=== PATIENT | male | born 1955 | race Caucasian/White ===

== ENCOUNTER 2021-07-29 08:54 | Emergency (ER) | payer OTHER, MEDICARE ==
[~2021-07-29] VITALS: Ht 172.7 cm; Wt 84.5 kg
[2021-07-29 09:29] VITALS: BP 130/90
== END 2021-07-29 09:45 | disposition home or self-care (01) ==
LOC: ER 08:56
DX: U07.1 COVID-19 (principal); Z60.2 Problems related to living alone; Z59.00 Homelessness unspecified
CPT/HCPCS: 99281

== ENCOUNTER 2021-08-08 20:46 | Emergency (ER) | payer OTHER, MEDICARE ==
[~2021-08-08] VITALS: Ht 172.7 cm; Wt 81.0 kg
[2021-08-08] MEDS ORDERED: ondansetron/PF 4mg/2ml inj IV ONE (22:50)
[2021-08-08] MEDS ORDERED: normal saline 1000ML IV soln IVB ONE (22:50)
[2021-08-08] MEDS ORDERED: magnesium 2GM in 50ml NS 50 ML IV ONE (22:50)
[2021-08-08] MEDS ORDERED: thiamine inj. 100 MG in normal saline 100ml IV soln 99 ML IV ONE (22:50)
[2021-08-08] MEDS ORDERED: phenobarbital inj 260 MG in normal saline 100ml IV soln 100 ML IV ONE (22:50)
[2021-08-08] MEDS ORDERED: thiamine 100mg/ml 2ml inj. IV ONE (22:55)
[2021-08-08 23:20] LABS: LYMPHOCYTES # (AUTO) 1.4 X10'3 (1.1-4.8)
[2021-08-08 23:21] LABS: BASOPHILS % (AUTO) 0.7 % (0-1); EOSINOPHILS % (AUTO) 0.5 % (0-6); HEMATOCRIT 43.4 % (42.0-52.0); HEMOGLOBIN 15.3 g/dl (14.0-17.9); LYMPHOCYTES % (AUTO) 21.5 % (21-51); MEAN CORPUSCULAR HEMOGLOBIN 32.5 PG (27.0-31.0); MEAN CORPUSCULAR HGB CONC 35.3 g/dL (33.0-36.5); MONOCYTES # (AUTO) 1.1 X10'3 (0-0.9); MONOCYTES % (AUTO) 16.8 % (2-12); NEUTROPHILS % (AUTO) 60.5 % (42-75); PLATELET COUNT 304 X10'3 (140-440); RED BLOOD COUNT 4.72 X10'6 (4.70-6.10); RED CELL DISTRIBUTION WIDTH 14.5 % (11.5-14.5); WHITE BLOOD COUNT 6.6 X10'3 (4.5-11.0)
[2021-08-08 23:32] LABS: ALANINE AMINOTRANSFERASE 110 U/L (12-78); ALBUMIN 3.4 G/DL (3.4-5.0); ALBUMIN/GLOBULIN RATIO 0.8 (1.1-1.5); ALKALINE PHOSPHATASE 79 IU/L (46-116); ANION GAP 14 (8-16); ASPARTATE AMINO TRANSFERASE 103 U/L (10-37); BILIRUBIN,TOTAL 1.5 MG/DL (0.1-1.0); BLOOD UREA NITROGEN 8 MG/DL (7-18); BUN/CREATININE RATIO 8.2 (5.4-32.0); CALCIUM 8.7 MG/DL (8.5-10.1); CHLORIDE 100 MMOL/L (99-107); CREATININE 0.97 MG/DL (0.60-1.10); ETHANOL < 0.010 GM/DL (0.0-0.010); GLUCOSE 123 MG/DL (70-104); MAGNESIUM 1.7 MG/DL (1.5-2.4); POTASSIUM 3.3 MMOL/L (3.5-5.1); SODIUM 139 MMOL/L (135-145); TOTAL CARBON DIOXIDE 24.7 MMOL/L (24-32); TOTAL PROTEIN 7.8 G/DL (6.4-8.2); eGFR 77 ML/MIN
[2021-08-08] MEDS ORDERED: phenobarbital inj 130 MG in normal saline 100ml IV soln 100 ML IV ONE (23:50)
[2021-08-09 00:43] LABS: TOTAL CELLS COUNTED 100
[2021-08-09 00:44] LABS: PLATELET ESTIMATE NORMAL
[2021-08-09 04:28] VITALS: BP 142/86
== END 2021-08-09 04:35 | disposition home or self-care (01) ==
LOC: ER 20:48
DX: F10.239 Alcohol dependence with withdrawal, unspecified (principal); R11.10 Vomiting, unspecified; Z72.89 Other problems related to lifestyle; Z59.00 Homelessness unspecified; Z60.2 Problems related to living alone; Y90.0 Blood alcohol level of less than 20 mg/100 ml
CPT/HCPCS: 36415; 80053; 80320; 83735; 85007; 85025; 93005; 96365; 96366; 96375; 96376; 99284; J2405; J2560; J3411; J3475; J7030; 96367

== ENCOUNTER 2022-02-21 11:32 | Emergency (ER) | payer OTHER, MEDICARE ==
[~2022-02-21] VITALS: Ht 170.2 cm; Wt 86.4 kg
[2022-02-21 12:23] VITALS: BP 134/96
[2022-02-21 13:48] LABS: BASOPHILS # (AUTO) 0.1 X10'3 (0-0.2); LYMPHOCYTES # (AUTO) 1.6 X10'3 (1.1-4.8); MEAN CORPUSCULAR HGB CONC 34.6 g/dL (33.0-36.5); MONOCYTES # (AUTO) 0.8 X10'3 (0-0.9); NEUTROPHILS # (AUTO) 1.8 X10'3 (1.8-7.7); RED BLOOD COUNT 5.11 X10'6 (4.70-6.10)
[2022-02-21 13:50] LABS: BASOPHILS % (AUTO) 1.3 % (0-1); EOSINOPHILS % (AUTO) 1.1 % (0-6); HEMATOCRIT 47.1 % (42.0-52.0); HEMOGLOBIN 16.3 g/dl (14.0-17.9); LYMPHOCYTES % (AUTO) 36.7 % (21-51); MEAN CORPUSCULAR HEMOGLOBIN 31.9 PG (27.0-31.0); MEAN CORPUSCULAR VOLUME 92.2 FL (78-98); MEAN PLATELET VOLUME 6.7 FL (7.4-10.4); MONOCYTES % (AUTO) 18.7 % (2-12); NEUTROPHILS % (AUTO) 42.2 % (42-75); PLATELET COUNT 243 X10'3 (140-440); RED CELL DISTRIBUTION WIDTH 13.5 % (11.5-14.5); WHITE BLOOD COUNT 4.3 X10'3 (4.5-11.0)
[2022-02-21 14:02] LABS: ALANINE AMINOTRANSFERASE 49 U/L (12-78); ALBUMIN 3.7 G/DL (3.4-5.0); ALBUMIN/GLOBULIN RATIO 0.8 (1.1-1.5); ALKALINE PHOSPHATASE 78 IU/L (46-116); ANION GAP 17 (8-16); ASPARTATE AMINO TRANSFERASE 43 U/L (10-37); BILIRUBIN,TOTAL 0.6 MG/DL (0.1-1.0); BLOOD UREA NITROGEN 8 MG/DL (7-18); BUN/CREATININE RATIO 8.9 (5.4-32.0); CALCIUM 8.5 MG/DL (8.5-10.1); CHLORIDE 102 MMOL/L (99-107); GLUCOSE 125 MG/DL (70-104); POTASSIUM 3.7 MMOL/L (3.5-5.1); SODIUM 140 MMOL/L (135-145); TOTAL CARBON DIOXIDE 21.1 MMOL/L (24-32); TOTAL PROTEIN 8.3 G/DL (6.4-8.2); eGFR 84 ML/MIN
[2022-02-21 14:03] LABS: MAGNESIUM 2.3 MG/DL (1.5-2.4)
[2022-02-21 14:04] LABS: ETHANOL 0.418 GM/DL (0.0-0.010)
[2022-02-21] MEDS ORDERED: normal saline 1000ML IV soln IVB ONE (14:10)
== END 2022-02-21 14:33 | disposition home or self-care (01) ==
LOC: ER 11:33
DX: F10.920 Alcohol use, unspecified with intoxication, uncomplicated (principal); Z59.00 Homelessness unspecified; Y90.9 Presence of alcohol in blood, level not specified
CPT/HCPCS: 36415; 80053; 80320; 83735; 85025; 99283

== ENCOUNTER 2023-09-29 20:40 | Inpatient (IN) | payer OTHER, MEDICARE ==
[~2023-09-29] VITALS: Ht 172.7 cm; Wt 85.4 kg
[2023-09-29] MEDS ORDERED: LORazepam 2 mg/ml vial IM ONE (20:50)
[2023-09-29] MEDS ORDERED: normal saline 1000ML IV soln IVB ONE (21:35)
[2023-09-29] MEDS ORDERED: Potassium Cl inj 20 MEQ, magnesium sulf injection 2 GM, folic acid inj. 1 MG, thiamine ... IV ONE ×6 (21:35)
[2023-09-29 21:46] LABS: HEMATOCRIT 48.2 % (42.0-52.0); HEMOGLOBIN 16.6 g/dl (14.0-17.9); MEAN CORPUSCULAR HEMOGLOBIN 32.5 PG (27.0-31.0); MEAN CORPUSCULAR HGB CONC 34.5 g/dL (33.0-36.5); MEAN CORPUSCULAR VOLUME 94.3 FL (78-98); MEAN PLATELET VOLUME 7.4 FL (7.4-10.4); PLATELET COUNT 271 X10'3 (140-440); RED BLOOD COUNT 5.11 X10'6 (4.70-6.10); RED CELL DISTRIBUTION WIDTH 15.1 % (11.5-14.5); WHITE BLOOD COUNT 5.8 X10'3 (4.5-11.0)
[2023-09-29 21:58] LABS: ALANINE AMINOTRANSFERASE 142 U/L (12-78); ALBUMIN 3.6 G/DL (3.4-5.0); ALBUMIN/GLOBULIN RATIO 0.8 (1.1-1.5); ALKALINE PHOSPHATASE 66 IU/L (46-116); ANION GAP 13 (8-16); ASPARTATE AMINO TRANSFERASE 111 U/L (10-37); BLOOD UREA NITROGEN 6 MG/DL (7-18); BUN/CREATININE RATIO 7.9 (10.0-20.0); CALCIUM 9.1 MG/DL (8.5-10.1); CHLORIDE 100 MMOL/L (99-107); CREATININE 0.76 MG/DL (0.60-1.10); ETHANOL 282 MG/DL (<10); GLUCOSE 122 MG/DL (70-104); POTASSIUM 3.4 MMOL/L (3.5-5.1); SODIUM 136 MMOL/L (135-145); TOTAL CARBON DIOXIDE 23.3 MMOL/L (24-32); TOTAL PROTEIN 8.2 G/DL (6.4-8.2); eCRCL 90 ML/MIN; eGFR > 90 ML/MIN
[2023-09-29 22:10] LABS: TOTAL CELLS COUNTED 100
[2023-09-29 22:11] LABS: PLATELET ESTIMATE NORMAL
[2023-09-29 22:14] LABS: ELLIPTOCYTES 1+
[2023-09-29] MEDS ORDERED: folic acid 1mg/0.2ml inj IV ONE (22:20)
[2023-09-29] MEDS ORDERED: magnesium 2GM in 50ml NS 50 ML IV ONE (22:20)
[2023-09-29] MEDS ORDERED: thiamine 100mg/ml 2ml inj. IV ONE (22:20)
[2023-09-29 22:22] LABS: THYROID STIMULATING HORMONE 5.25 ulU/ml (0.34-4.50)
[2023-09-29] MEDS: potassium CL 10mEq/100ml bag 100 ML IV SCH (23:31)
[2023-09-30] MEDS: potassium CL 10mEq/100ml bag 100 ML IV SCH (00:35)
[2023-09-30 03:26] LABS: URINE AMPHETAMINE SCREEN NEGATIVE (Neg); URINE BARBITUATE SCREEN NEGATIVE (Neg); URINE BENZODIAZEPINES SCREEN NEGATIVE (Neg); URINE CANNABINOID SCREEN NEGATIVE (Neg); URINE COCAINE SCREEN NEGATIVE (Neg); URINE METHADONE SCREEN NEGATIVE (Neg); URINE OPIATE SCREEN NEGATIVE (Neg); URINE PHENCYCLIDINE SCREEN NEGATIVE (Neg)
[2023-09-30 04:07] LABS: BILIRUBIN,URINE NEGATIVE (Neg); CLARITY,URINE CLEAR (Clear); COLOR,URINE YELLOW (Yellow); GLUCOSE, URINE NEGATIVE (Neg); KETONES,URINE TRACE mg/dl (Neg); LEUKOCYTE ESTERASE ,URINE NEGATIVE (Neg); NITRITES, URINE NEGATIVE (Neg); OCCULT BLOOD,URINE NEGATIVE (Neg); PROTEIN,URINE NEGATIVE (Neg); UROBILINOGEN,URINE 0.2 E.U/dL (0.2-1.0)
[2023-09-30 04:12] LABS: UA COLLECTION TYPE URINAL
[2023-09-30] MEDS ORDERED: phenobarbital inj 130 MG in normal saline 100ml IV soln 99 ML IV SCH (11:50)
[2023-09-30] MEDS ORDERED: phenobarbital inj 130 MG in normal saline 100ml IV soln 99 ML IV ONE (12:50)
[2023-09-30] MEDS ORDERED: magnesium 4gm in 100ml NS 100 ML IV PRN (13:10)
[2023-09-30] MEDS ORDERED: ondansetron/PF 4mg/2ml inj IV PRN (13:10)
[2023-09-30] MEDS ORDERED: magnesium 2GM in 50ml NS 50 ML IV PRN (13:10)
[2023-09-30] MEDS ORDERED: potassium Cl 40MEQ/1/2NS 520ml 520 ML IV PRN (13:10)
[2023-09-30] MEDS ORDERED: potassium Cl 20 mEq SR tablet PO PRN ×2 (13:10)
[2023-09-30] MEDS ORDERED: acetaminophen 325mg tablet PO PRN (13:10)
[2023-09-30] MEDS ORDERED: magnesium Cl slow-release 64mg tablet PO PRN (13:10)
[2023-09-30 13:51] LABS: CREATINE KINASE 366 U/L (39-308); LIPASE 50 U/L (16-77)
[2023-09-30] MEDS ORDERED: haloperidol 5mg tablet PO PRN (14:20)
[2023-09-30] MEDS ORDERED: LORazepam 1 MG tablet PO PRN (14:20)
[2023-09-30] MEDS ORDERED: haloperidol lactate 5mg/ml inj IM PRN (14:20)
[2023-09-30] MEDS: normal saline 1000ml 1,000 ML IV SCH (14:22)
[2023-09-30 16:25] VITALS: BP 158/102; PULSE 92; RESP 18; TEMP 98.2; O2SAT 97
[2023-09-30] MEDS: LORazepam 2 mg/ml vial IV PRN (16:39)
[2023-09-30 22:00] VITALS: BP 142/89; PULSE 95; RESP 18; TEMP 97.2; O2SAT 97
[2023-10-01 02:00] VITALS: BP 148/98; PULSE 97; RESP 17; TEMP 97.6; O2SAT 96
[2023-10-01 06:16] LABS: BASOPHILS # (AUTO) 0.1 X10'3 (0-0.2); BASOPHILS % (AUTO) 1.2 % (0-1); EOSINOPHILS # (AUTO) 0.1 X10'3 (0-0.9); EOSINOPHILS % (AUTO) 2.6 % (0-6); HEMATOCRIT 42.3 % (42.0-52.0); HEMOGLOBIN 14.5 g/dl (14.0-17.9); LYMPHOCYTES # (AUTO) 0.8 X10'3 (1.1-4.8); LYMPHOCYTES % (AUTO) 14.6 % (21-51); MEAN CORPUSCULAR HEMOGLOBIN 32.5 PG (27.0-31.0); MEAN CORPUSCULAR HGB CONC 34.4 g/dL (33.0-36.5); MEAN CORPUSCULAR VOLUME 94.5 FL (78-98); MEAN PLATELET VOLUME 7.5 FL (7.4-10.4); MONOCYTES # (AUTO) 0.8 X10'3 (0-0.9); MONOCYTES % (AUTO) 16.2 % (2-12); NEUTROPHILS # (AUTO) 3.4 X10'3 (1.8-7.7); NEUTROPHILS % (AUTO) 65.4 % (42-75); PLATELET COUNT 196 X10'3 (140-440); RED BLOOD COUNT 4.47 X10'6 (4.70-6.10); RED CELL DISTRIBUTION WIDTH 14.5 % (11.5-14.5); WHITE BLOOD COUNT 5.2 X10'3 (4.5-11.0)
[2023-10-01 06:25] LABS: ALANINE AMINOTRANSFERASE 103 U/L (12-78); ALBUMIN 2.9 G/DL (3.4-5.0); ALBUMIN/GLOBULIN RATIO 0.7 (1.1-1.5); ALKALINE PHOSPHATASE 55 IU/L (46-116); ANION GAP 9 (8-16); ASPARTATE AMINO TRANSFERASE 79 U/L (10-37); BLOOD UREA NITROGEN 6 MG/DL (7-18); BUN/CREATININE RATIO 9.4 (10.0-20.0); CALCIUM 8.4 MG/DL (8.5-10.1); CHLORIDE 99 MMOL/L (99-107); CREATININE 0.64 MG/DL (0.60-1.10); GLUCOSE 109 MG/DL (70-104); PHOSPHORUS 3.6 MG/DL (2.3-4.5); POTASSIUM 3.5 MMOL/L (3.5-5.1); SODIUM 132 MMOL/L (135-145); TOTAL CARBON DIOXIDE 24.3 MMOL/L (24-32); TOTAL PROTEIN 6.8 G/DL (6.4-8.2); eCRCL 107 ML/MIN; eGFR > 90 ML/MIN
[2023-10-01 07:00] VITALS: BP 149/99; PULSE 97; RESP 18; TEMP 98.9; O2SAT 97
[2023-10-01 07:01] LABS: PLATELET ESTIMATE NORMAL; TOTAL CELLS COUNTED 100
[2023-10-01 10:00] VITALS: BP 102/54; PULSE 99; RESP 18; TEMP 98.7; O2SAT 96
[2023-10-01] MEDS: enoxaparin 40mg/0.4ml syringe SUBCUT SCH (10:57)
[2023-10-01] MEDS: normal saline 1000ml 1,000 ML IV SCH (11:02)
[2023-10-01] MEDS ORDERED: THIA50TA10 PO (15:54)
[2023-10-01] MEDS ORDERED: FOLI1TAB27 PO (15:54)
[2023-10-01] MEDS ORDERED: ACET325T55 PO (15:54)
[2023-10-01] MEDS ORDERED: AMLO2.5T5 PO (15:54)
[2023-10-01] MEDS ORDERED: DICL20GE TOP (15:54)
[2023-10-01] MEDS ORDERED: METH-797 PO (15:54)
[2023-10-01] MEDS ORDERED: ATOR20TA66 PO (15:54)
[2023-10-01] MEDS ORDERED: IBUP-1984 PO (15:54)
[2023-10-01] MEDS ORDERED: CHOL100024 PO (15:54)
[2023-10-01] MEDS ORDERED: GABA600T13 PO (15:54)
[2023-10-01] MEDS ORDERED: MULT-1085 PO (15:54)
[2023-10-01] MEDS ORDERED: PRAZ2CAP2 PO (15:54)
[2023-10-01 18:00] VITALS: BP 139/84; PULSE 95; RESP 18; TEMP 99.7; O2SAT 99
[2023-10-01 22:00] VITALS: BP 147/75; PULSE 91; RESP 16; TEMP 98.2; O2SAT 95
[2023-10-01] MEDS: temazepam 15mg capsule PO PRN (23:18)
[2023-10-02] VITALS (7 sets, daily range): BP systolic 122–138; BP diastolic 80–89; PULSE 82–94; RESP 14–20; TEMP 97.6–98.7; O2SAT 94–97
[2023-10-02] MEDS: normal saline 1000ml 1,000 ML IV SCH ×2 (04:22→23:32)
[2023-10-02 06:26] LABS: BASOPHILS # (AUTO) 0.1 X10'3 (0-0.2); BASOPHILS % (AUTO) 1.3 % (0-1); EOSINOPHILS # (AUTO) 0.1 X10'3 (0-0.9); EOSINOPHILS % (AUTO) 2.9 % (0-6); HEMATOCRIT 42.3 % (42.0-52.0); HEMOGLOBIN 14.5 g/dl (14.0-17.9); LYMPHOCYTES # (AUTO) 0.7 X10'3 (1.1-4.8); LYMPHOCYTES % (AUTO) 15.6 % (21-51); MEAN CORPUSCULAR HEMOGLOBIN 32.5 PG (27.0-31.0); MEAN CORPUSCULAR HGB CONC 34.2 g/dL (33.0-36.5); MEAN CORPUSCULAR VOLUME 95.2 FL (78-98); MONOCYTES # (AUTO) 0.7 X10'3 (0-0.9); MONOCYTES % (AUTO) 14.4 % (2-12); NEUTROPHILS # (AUTO) 3.1 X10'3 (1.8-7.7); NEUTROPHILS % (AUTO) 65.8 % (42-75); PLATELET COUNT 174 X10'3 (140-440); RED BLOOD COUNT 4.44 X10'6 (4.70-6.10); RED CELL DISTRIBUTION WIDTH 14.7 % (11.5-14.5); WHITE BLOOD COUNT 4.7 X10'3 (4.5-11.0)
[2023-10-02 06:32] LABS: ALANINE AMINOTRANSFERASE 134 U/L (12-78); ALBUMIN 2.9 G/DL (3.4-5.0); ALBUMIN/GLOBULIN RATIO 0.7 (1.1-1.5); ALKALINE PHOSPHATASE 53 IU/L (46-116); ANION GAP 8 (8-16); ASPARTATE AMINO TRANSFERASE 145 U/L (10-37); BILIRUBIN,TOTAL 1.3 MG/DL (0.1-1.0); BLOOD UREA NITROGEN 11 MG/DL (7-18); BUN/CREATININE RATIO 14.9 (10.0-20.0); CALCIUM 8.7 MG/DL (8.5-10.1); CHLORIDE 103 MMOL/L (99-107); CREATININE 0.74 MG/DL (0.60-1.10); GLUCOSE 128 MG/DL (70-104); MAGNESIUM 2.1 MG/DL (1.5-2.4); PHOSPHORUS 4.1 MG/DL (2.3-4.5); SODIUM 135 MMOL/L (135-145); TOTAL CARBON DIOXIDE 24.4 MMOL/L (24-32); TOTAL PROTEIN 6.9 G/DL (6.4-8.2); eCRCL 92 ML/MIN; eGFR > 90 ML/MIN
[2023-10-02] MEDS: LORazepam 2 mg/ml vial IV PRN (08:55)
[2023-10-02] MEDS: enoxaparin 40mg/0.4ml syringe SUBCUT SCH (08:55)
[2023-10-02 08:59] LABS: CREATINE KINASE 127 U/L (39-308)
[2023-10-02] MEDS: acetaminophen 325mg tablet PO PRN (21:16)
[2023-10-02] MEDS: temazepam 15mg capsule PO PRN (21:16)
[2023-10-03] VITALS (7 sets, daily range): BP systolic 110–140; BP diastolic 67–98; PULSE 60–95; RESP 16–19; TEMP 97.7–98.3; O2SAT 95–98
[2023-10-03 07:17] LABS: ALANINE AMINOTRANSFERASE 188 U/L (12-78); ALBUMIN/GLOBULIN RATIO 0.7 (1.1-1.5); ALKALINE PHOSPHATASE 58 IU/L (46-116); ANION GAP 10 (8-16); ASPARTATE AMINO TRANSFERASE 173 U/L (10-37); BILIRUBIN,TOTAL 1.1 MG/DL (0.1-1.0); BLOOD UREA NITROGEN 12 MG/DL (7-18); BUN/CREATININE RATIO 16.7 (10.0-20.0); CHLORIDE 101 MMOL/L (99-107); CREATININE 0.72 MG/DL (0.60-1.10); GLUCOSE 123 MG/DL (70-104); PHOSPHORUS 4.5 MG/DL (2.3-4.5); POTASSIUM 3.8 MMOL/L (3.5-5.1); SODIUM 136 MMOL/L (135-145); TOTAL CARBON DIOXIDE 24.6 MMOL/L (24-32); TOTAL PROTEIN 7.3 G/DL (6.4-8.2); eCRCL 95 ML/MIN; eGFR > 90 ML/MIN
[2023-10-03 07:19] LABS: BASOPHILS # (AUTO) 0.1 X10'3 (0-0.2); EOSINOPHILS # (AUTO) 0.1 X10'3 (0-0.9); EOSINOPHILS % (AUTO) 2.8 % (0-6); HEMATOCRIT 42.9 % (42.0-52.0); HEMOGLOBIN 14.5 g/dl (14.0-17.9); LYMPHOCYTES # (AUTO) 0.8 X10'3 (1.1-4.8); LYMPHOCYTES % (AUTO) 15.9 % (21-51); MEAN CORPUSCULAR HEMOGLOBIN 32.1 PG (27.0-31.0); MEAN CORPUSCULAR HGB CONC 33.9 g/dL (33.0-36.5); MEAN CORPUSCULAR VOLUME 94.8 FL (78-98); MONOCYTES # (AUTO) 0.8 X10'3 (0-0.9); MONOCYTES % (AUTO) 15.8 % (2-12); NEUTROPHILS # (AUTO) 3.3 X10'3 (1.8-7.7); NEUTROPHILS % (AUTO) 64.5 % (42-75); PLATELET COUNT 166 X10'3 (140-440); RED BLOOD COUNT 4.52 X10'6 (4.70-6.10); RED CELL DISTRIBUTION WIDTH 14.8 % (11.5-14.5); WHITE BLOOD COUNT 5.1 X10'3 (4.5-11.0)
[2023-10-03] MEDS: LORazepam 2 mg/ml vial IV PRN (07:35)
[2023-10-03] MEDS: enoxaparin 40mg/0.4ml syringe SUBCUT SCH (07:36)
[2023-10-03] MEDS ORDERED: ACET-1008 PO (13:01)
[2023-10-03] MEDS: acetaminophen 325mg tablet PO PRN (20:05)
[2023-10-03] MEDS: temazepam 15mg capsule PO PRN (20:05)
[2023-10-03] MEDS: normal saline 1000ml 1,000 ML IV SCH (21:10)
[2023-10-04 01:11] VITALS: O2SAT 97
[2023-10-04 06:52] LABS: BASOPHILS # (AUTO) 0.1 X10'3 (0-0.2); BASOPHILS % (AUTO) 1.1 % (0-1); EOSINOPHILS # (AUTO) 0.2 X10'3 (0-0.9); EOSINOPHILS % (AUTO) 2.7 % (0-6); HEMATOCRIT 43.6 % (42.0-52.0); LYMPHOCYTES % (AUTO) 17.4 % (21-51); MEAN CORPUSCULAR HEMOGLOBIN 32.8 PG (27.0-31.0); MEAN CORPUSCULAR HGB CONC 34.3 g/dL (33.0-36.5); MEAN CORPUSCULAR VOLUME 95.5 FL (78-98); MONOCYTES # (AUTO) 1.1 X10'3 (0-0.9); MONOCYTES % (AUTO) 19.2 % (2-12); NEUTROPHILS # (AUTO) 3.4 X10'3 (1.8-7.7); NEUTROPHILS % (AUTO) 59.6 % (42-75); PLATELET COUNT 168 X10'3 (140-440); RED BLOOD COUNT 4.57 X10'6 (4.70-6.10); RED CELL DISTRIBUTION WIDTH 15.1 % (11.5-14.5); WHITE BLOOD COUNT 5.7 X10'3 (4.5-11.0)
[2023-10-04 07:00] VITALS: BP 109/76; PULSE 78; RESP 12; TEMP 97.9; O2SAT 96
[2023-10-04 07:27] LABS: ALANINE AMINOTRANSFERASE 273 U/L (12-78); ALBUMIN 3.1 G/DL (3.4-5.0); ALBUMIN/GLOBULIN RATIO 0.7 (1.1-1.5); ALKALINE PHOSPHATASE 52 IU/L (46-116); ANION GAP 11 (8-16); ASPARTATE AMINO TRANSFERASE 224 U/L (10-37); BILIRUBIN,TOTAL 1.2 MG/DL (0.1-1.0); BLOOD UREA NITROGEN 12 MG/DL (7-18); BUN/CREATININE RATIO 19.4 (10.0-20.0); CALCIUM 8.9 MG/DL (8.5-10.1); CHLORIDE 101 MMOL/L (99-107); CREATININE 0.62 MG/DL (0.60-1.10); GLUCOSE 112 MG/DL (70-104); POTASSIUM 3.8 MMOL/L (3.5-5.1); SODIUM 135 MMOL/L (135-145); TOTAL CARBON DIOXIDE 23.4 MMOL/L (24-32); TOTAL PROTEIN 7.4 G/DL (6.4-8.2); eCRCL 110 ML/MIN; eGFR > 90 ML/MIN
[2023-10-04] MEDS: enoxaparin 40mg/0.4ml syringe SUBCUT SCH (08:57)
[2023-10-04 12:08] LABS: COVID19 ID NOW NEGATIVE (Neg)
[2023-10-05] MEDS ORDERED: thiamine 100mg tablet PO SCH (08:00)
[2023-10-05] MEDS ORDERED: folic acid 1mg tablet PO SCH (08:00)
== END 2023-10-04 16:11 | DRG 897 ==
LOC: ER 20:40 → ED HOLD 09-30 13:11 → PCU 3S 09-30 16:31
PROVIDERS: ADMIT Internal Medicine; ATTEND Internal Medicine
DX: F10.920 Alcohol use, unspecified with intoxication, uncomplicated (principal); R45.851 Suicidal ideations; F32.2 Major depressive disorder, single episode, severe without psychotic features; E87.1 Hypo-osmolality and hyponatremia; Z59.00 Homelessness unspecified; F10.239 Alcohol dependence with withdrawal, unspecified; Z66 Do not resuscitate; G89.29 Other chronic pain; I10 Essential (primary) hypertension; E78.5 Hyperlipidemia, unspecified; F10.229 Alcohol dependence with intoxication, unspecified; Y90.8 Blood alcohol level of 240 mg/100 ml or more; Z20.822 Contact with and (suspected) exposure to COVID-19; M25.561 Pain in right knee; Z63.8 Other specified problems related to primary support group; Z71.41 Alcohol abuse counseling and surveillance of alcoholic
CPT/HCPCS: 36415; 80053; 80305; 80320; 81003; 82550; 83690; 83735; 84100; 84443; 85007; 85025; 87081; 87635; 87811; 97161; 97530; 99285; A6258; G0378; J1650; J2060; J2560; J3411; J3475; J3480; J3490; J7030